=== PATIENT | male | born 1995 | race Caucasian/White ===

== ENCOUNTER 2022-02-13 17:10 | Emergency (ER) | payer SELFPAY ==
[2022-02-13 18:25] LABS: B. PARAPERTUSSIS- RESP PCR PAN NOT DETECTED; B. PERTUSSIS- RESP PCR PANEL NOT DETECTED; C. PNEUMONIAE- RESP PCR PANEL NOT DETECTED; CORONAVIRUS 229E-RESP PCR NOT DETECTED; CORONAVIRUS HKU1-RESP PCR NOT DETECTED; CORONAVIRUS NL63-RESP PCR NOT DETECTED; CORONAVIRUS OC43-RESP PCR NOT DETECTED; HUMAN METAPNEUMOVIRUS NOT DETECTED; INFLUENZA A- RESP PCR PANEL NOT DETECTED; INFLUENZA B - RESP PCR PANEL NOT DETECTED; M. PNEUMONIAE- RESP PCR PANEL NOT DETECTED; PARAINFLUENZA VIRUS 1 NOT DETECTED; PARAINFLUENZA VIRUS 2 NOT DETECTED; PARAINFLUENZA VIRUS 3 NOT DETECTED; PARAINFLUENZA VIRUS 4 NOT DETECTED; RHINOVIRUS/ENTEROVIRUS NOT DETECTED; RSV- RESP PCR PANEL NOT DETECTED; SARS-CoV-2 -RESP PCR PANEL DETECTED
--- NOTE | 2022-02-13 18:39 | ED Physician Documentation ---
History of Present Illness - Stated complaint Stated Complaint: PNEUMONIA SYMPTOMS - Chief complaint Chief Complaint: Resp - History obtained from History obtained from: Patient - Additonal information Additional information: 26-year-old with history of nicotine abuse via vaping but otherwise healthy presents with an illness starting yesterday marked by sore throat, productive cough and severe body aches. He is not vaccinated against COVID. Review of Systems Constitutional: reports: Chills, Myalgias, Fatigue. denies: Fever Nose: reports: Rhinorrhea / runny nose Throat: reports: Sore throat Respiratory: reports: Cough. denies: Dyspnea PD PAST MEDICAL HISTORY - Present Medications Home Medications: Ambulatory Orders Medication Instructions Recorded Confirmed Ibuprofen [Motrin] 800 mg PO Q8H PRN #30 tablet 02/13/22 - Allergies Allergies/Adverse Reactions: Allergies Allergy/AdvReac Type Severity Reaction Status Date / Time No Known Drug Allergies Allergy Verified 02/13/22 17:22 PD ED PE NORMAL - Vitals Vital signs reviewed: Yes - General General: Alert and oriented X 3, No acute distress - Cardiac Cardiac: RRR, No murmur - Respiratory Respiratory: No respiratory distress, Clear bilaterally - Abdomen Abdomen: Non tender - Derm Derm: No rash - Neuro Neuro: Alert and oriented X 3 - Psych Psych: Normal mood, Normal affect Results - Vitals Vitals: Vital Signs - 24 hr 02/13/22 17:18 Temperature 37.4 C Heart Rate 83 Respiratory 24 Rate Blood Pressure 149/87 H O2 Saturation 97 Oxygen O2 Source Room air - Labs Labs: Laboratory Tests 02/13/22 17:25 Nasal Adenovirus (PCR) NOT DETECTED Nasal B. parapertussis DNA (PCR) NOT DETECTED Nasal Coronavir 229E PCR NOT DETECTED Nasal Coronavir HKU1 PCR NOT DETECTED Nasal Coronavir NL63 PCR NOT DETECTED Nasal Coronavir OC43 PCR NOT DETECTED Nasal Enterovir/Rhinovir PCR NOT DETECTED Nasal Influenza B PCR NOT DETECTED Nasal Influenza A PCR NOT DETECTED Nasal Parainfluen 1 PCR NOT DETECTED Nasal Parainfluen 2 PCR NOT DETECTED Nasal Parainfluen 3 PCR NOT DETECTED Nasal Parainfluen 4 PCR NOT DETECTED Nasal RSV (PCR) NOT DETECTED Nasal B.pertussis DNA PCR NOT DETECTED Nasal C.pneumoniae (PCR) NOT DETECTED Evan Human Metapneumo PCR NOT DETECTED Nasal M.pneumoniae (PCR) NOT DETECTED Nasal SARS-CoV-2 (PCR) DETECTED A PD Medical Decision Making - ED course ED course: After discussion, given BMI of 35 and nicotine abuse he would like to go ahead with antiviral medication and is dispensed paxlovid. Departure - Departure Disposition: 01 Home, Self Care Clinical Impression: COVID-19 Condition: Stable Record reviewed to determine appropriate education?: Yes Instructions: ED Viral Syndrome Prescriptions: Ibuprofen [Motrin] 800 mg PO Q8H PRN #30 tablet PRN Reason: PAIN &/OR FEVER Comments: You are found today to have COVID. I am prescribing some medication for the ac hes and pains and you can also use Chloraseptic available [id number] for the sore throat. Return for new or worsening symptoms. Given your unvaccinated status you will need to quarantine for the next 10 days. Forms: Activity restrictions
[2022-02-13] MEDS ORDERED: NIRMATRELVIR/RITONAVIR PREPACK PO STA (18:48)
[2022-02-13] MEDS ORDERED: IBUPROFEN 800 MG TABLET PO STA (18:48)
[2022-02-13 18:51] VITALS: BP 135/83
== END 2022-02-13 19:05 | disposition home or self-care (01) ==
LOC: ED 17:10
DX: U07.1 COVID-19 (principal)
CPT/HCPCS: 87633; 99282; 99283; A9270; J3490

== ENCOUNTER 2022-03-13 14:10 | Emergency (ER) | payer OTHER ==
[2022-03-13 14:19] VITALS: BP 153/81
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
--- NOTE | 2022-03-13 15:07 | XRAY Report ---
PROCEDURE: Ribs w/PA Chest LT INDICATIONS: left chest wall injury TECHNIQUE: 3 views of the left ribs were acquired, along with a single view chest. COMPARISON: none FINDINGS: Surgical changes and devices: None. Bones and chest wall: No fractures or dislocations. No suspicious bony lesions. Overlying soft tis sues appear unremarkable. Lungs and pleura: No pleural effusions or pneumothorax. Lungs appear clear. Mediastinum: Mediastinal contours appear normal. Heart size is normal. IMPRESSION: No visualized acute fracture or dislocation. However, occult injury cannot be excluded. Recommend mo rt interval imaging follow-up in 7-10 days as clinically indicated for additional evaluation. Reviewed by: Arleen Cid MD on 03/13/2022 3:05 PM PST Approved by: Arleen Cid MD on 03/13/2022 3:05 PM [facility] Station ID: [id number]
== END 2022-03-13 15:12 | disposition home or self-care (01) ==
LOC: ED 14:10
DX: S20.219A Contusion of unspecified front wall of thorax, initial encounter (principal); V49.49XA Driver injured in collision with other motor vehicles in traffic accident, initial encounter; Y93.89 Activity, other specified; Y92.410 Unspecified street and highway as the place of occurrence of the external cause
CPT/HCPCS: 99283